=== PATIENT | male | born 1985 | race Caucasian/White ===

== ENCOUNTER 2023-09-27 08:04 | Emergency (ER) | payer OTHER ==
[2023-09-27 08:55] LABS: Bacteria/HPF None Seen HPF (None Seen); Bilirubin Negative (Negative); Blood, Urine Negative (Negative); CAUTI Indications for Culture Pelvic or flank pain; Clarity Clear (Clear); Glucose, Urine (Dipstick) Normal (Negative); Ketone, Urine Negative (Negative); Leukocyte Negative Leu/uL (Negative); Nitrite Negative (Negative); Protein, Urine (Dipstick) Negative (Neg-Trace); RBC/HPF None Seen HPF (0-3); Specific Gravity, Urine 1.004 (1.002-1.036); Squamous Epithelial 0-3 HPF (0-3); Urobilinogen Normal mg/dL (Less than 2); WBC/HPF None Seen HPF (0-3); pH, Urine 5.5 (5.0-9.0)
[2023-09-27 09:00] LABS: Urine Culture Reflex No No
[2023-09-27 09:37] LABS: #Basophils 0.03 10x3/uL (0.0-0.2); %Basophils 0.7 % (0.0-1.0); %Eosinophils 2.6 % (0.0-10.0); %Lymphocytes 39.6 % (21.0-51.0); %Monocytes 9.6 % (0.0-10.0); %Neutrophils 47.3 % (42.0-75.0); Hematocrit 45.2 % (42.0-52.0); Hemoglobin 15.4 g/dL (14.0-18.0); Mean Corpuscular HGB CONC 34.1 g/dL (32.0-36.0); Mean Corpuscular Hemoglobin 30.9 pg (27.0-31.0); Mean Corpuscular Volume 90.8 fL (78.0-98.0); Mean Platelet Volume 9.5 fL (7.4-10.4); Platelet Count 221 10x3/uL (130-400); RBC Distribution Width 12.3 % (11.5-14.5); Red Blood Cell (RBC) Count 4.98 mill/uL (4.70-6.10)
[2023-09-27 09:55] LABS: Amphetamine Not Detected (NotDetected); Barbiturates Screen Not Detected (NotDetected); Benzodiazepine Screen Detected (NotDetected); Cocaine Metabolite Screen Not Detected (NotDetected); Methadone Not Detected (NotDetected); Methamphetamine Not Detected (NotDetected); Opiate Screen Not Detected (NotDetected); Oxycodone Screen Not Detected (NotDetected); Phencyclidine (PCP) Not Detected (NotDetected); THC/Cannabinoid Screen Not Detected (NotDetected); Tricyclic Screen Not Detected (NotDetected)
[2023-09-27 10:01] LABS: ALT (SGPT) 9 U/L (8-55); AST (SGOT) 14 U/L (5-34); Albumin 4.1 g/dL (3.5-5.0); Alkaline Phosphatase 78 U/L (40-110); Anion Gap 13 mmol/L (10-20); BUN (Urea Nitrogen) 10 mg/dL (8.9-20.6); Bilirubin, Total 0.5 mg/dL (0.2-1.2); CK (CPK) 60 U/L (30-200); Calc. Creatinine Clearance 0 mL/min (70-130); Calcium 9.6 mg/dL (7.8-10.44); Carbon Dioxide 26 mmol/L (22-29); Chloride 107 mmol/L (98-107); Estimated GFR 95; Globulin 2.9 g/dL (2.4-3.5); Glucose 96 mg/dL (70-105); Lipase 30 U/L (8-78); Potassium 4.3 mmol/L (3.5-5.1); Sodium 142 mmol/L (136-145)
[2023-09-27 10:07] LABS: Acetaminophen Less than 10 mcg/mL (10.0-30.0); Alcohol Less than 10.0 mg/dL (Less than 10); Salicylate Less than 8.0 mg/dL (15.0-30.0)
[2023-09-27 10:10] LABS: SARS-CoV-2 E Target Negative; SARS-CoV-2 N2 Target Negative; SARS-CoV-2 NAA Rapid Test Not Detected (NotDetected); SARS-CoV-2 RdRP gene Negative
[2023-09-27 11:14] LABS: Troponin I Less than 0.010 ng/mL (< 0.028)
[2023-09-27] MEDS ORDERED: Naproxen 500 MG TAB ONE (12:01)
== END 2023-09-27 12:07 | disposition home or self-care (01) ==
LOC: ERS 08:04
DX: R10.9 Unspecified abdominal pain (principal); G47.9 Sleep disorder, unspecified; R53.83 Other fatigue; R29.700 NIHSS score 0; F17.290 Nicotine dependence, other tobacco product, uncomplicated; B20 Human immunodeficiency virus [HIV] disease; Z79.899 Other long term (current) drug therapy
CPT/HCPCS: 36415; 36416; 74176; 80053; 80306; 80307; 81001; 82550; 83605; 83690; 84484; 85025; 87040; 93005; U0002

== ENCOUNTER 2024-01-24 01:52 | Inpatient (IN) | payer OTHER ==
[2024-01-24] MEDS ORDERED: NOREPINEPHRINE 8 MG/250 ML-D5W 250 ML ONE (01:55)
[2024-01-24 02:35] LABS: Actual Bicarbonate (HCO3a) 16.3 mEq/L (22-28); Analyzer IN Cardio ER; Base Excess (BEa) -11.6 mEq/L (-2.0 to +3.0); CO2 Tension 44.1 mmHg (35.0-45.0); Calcium, Ionized (arterial) 1.06 mmol/L (1.12-1.30); Carboxyhemoglobin (COHb) 0.5 gm% (0.0-3.0); Hematocrit-ABG 44 % (42.0-52.0); Hemoglobin (Hb) 14.8 g/dL (14.0-18.0); O2 Tension (PaO2), arterial 72.6 mmHg (80.0-100.0)
[2024-01-24] MEDS ORDERED: Sodium Bicarb 50 MEQ/50 ML Abboject 8.4% SYRINGE ONE (02:37)
[2024-01-24] MEDS ORDERED: Calcium Chloride 1 GM/10 ML Abboject SYRINGE ONE (02:37)
[2024-01-24 02:41] LABS: #Basophils Less than 0.03 10x3/uL (0.0-0.2); #Eosinophils Less than 0.03 10x3/uL (0.0-0.7); %Basophils 0.2 % (0.0-1.0); %Lymphocytes 8.3 % (21.0-51.0); %Monocytes 6.3 % (0.0-10.0); %Neutrophils 84.5 % (42.0-75.0); Hematocrit 44.4 % (42.0-52.0); Hemoglobin 14.3 g/dL (14.0-18.0); Mean Corpuscular HGB CONC 32.2 g/dL (32.0-36.0); Mean Corpuscular Hemoglobin 30.2 pg (27.0-31.0); Mean Corpuscular Volume 93.7 fL (78.0-98.0); Mean Platelet Volume 9.3 fL (7.4-10.4); Platelet Count 171 10x3/uL (130-400); RBC Distribution Width 13.4 % (11.5-14.5); Red Blood Cell (RBC) Count 4.74 mill/uL (4.70-6.10)
[2024-01-24 02:43] LABS: Acetaminophen Less than 10 mcg/mL (Less than 10); Alcohol Less than 10.0 mg/dL (Less than 10); Salicylate Less than 8.0 mg/dL (Less than 8.0)
[2024-01-24 02:48] LABS: Troponin I 0.148 ng/mL (< 0.028)
[2024-01-24 02:49] LABS: ALT (SGPT) 677 U/L (8-55); AST (SGOT) 769 U/L (5-34); Albumin 3.6 g/dL (3.5-5.0); Alkaline Phosphatase 115 U/L (40-110); Anion Gap 25 mmol/L (10-20); BUN (Urea Nitrogen) 25 mg/dL (8.9-20.6); Bilirubin, Total 0.5 mg/dL (0.2-1.2); Calc. Creatinine Clearance 0 mL/min (70-130); Carbon Dioxide 16 mmol/L (22-29); Chloride 99 mmol/L (98-107); Estimated GFR 31; Globulin 2.8 g/dL (2.4-3.5); Glucose 135 mg/dL (70-105); Potassium 7.2 mmol/L (3.5-5.1); Protein, Total 6.4 g/dL (6.0-8.3); Sodium 133 mmol/L (136-145)
[2024-01-24 02:49] LABS: Bilirubin Negative (Negative); Blood, Urine 3+ (Negative); CAUTI Indications for Culture Alt mental st,lethar; Clarity Turbid (Clear); Glucose, Urine (Dipstick) Normal (Negative); Ketone, Urine Trace mg/dL (Negative); Leukocyte Negative Leu/uL (Negative); Nitrite Negative (Negative); Protein, Urine (Dipstick) 50 mg/dL (Neg-Trace); RBC/HPF 0-3 HPF (0-3); Specific Gravity, Urine 1.015 (1.002-1.036); Squamous Epithelial 0-3 HPF (0-3); Urobilinogen Normal mg/dL (Less than 2); WBC/HPF 0-3 HPF (0-3)
[2024-01-24 02:54] LABS: CK (CPK) 5592 U/L (30-200)
[2024-01-24] MEDS ORDERED: Insulin Regular, Human 100 UNIT/ML 10 ML VIAL ONE (02:54)
[2024-01-24] MEDS ORDERED: Dextrose 10% in Water 250 ML ONE (02:54)
[2024-01-24 02:56] LABS: Amphetamine Detected (NotDetected); Barbiturates Screen Not Detected (NotDetected); Benzodiazepine Screen Detected (NotDetected); Cocaine Metabolite Screen Not Detected (NotDetected); Methadone Not Detected (NotDetected); Methamphetamine Detected (NotDetected); Opiate Screen Not Detected (NotDetected); Oxycodone Screen Not Detected (NotDetected); Phencyclidine (PCP) Not Detected (NotDetected); THC/Cannabinoid Screen Not Detected (NotDetected); Tricyclic Screen Not Detected (NotDetected)
[2024-01-24 02:57] LABS: ALV-art Gradient 585.275 mmHg (0-20); Bacteria/HPF 1+ HPF (None Seen); Potassium - ABG Lab 6.31 mmol/L (3.70-5.30); Puncture Site Left Radial artery; Urine Culture Reflex No No; pH, Arterial 7.186 (7.35-7.45)
[2024-01-24] MEDS ORDERED: fentaNYL 50 mcg/mL 1 mL Vial ONE (03:04)
[2024-01-24] MEDS ORDERED: Albuterol 2.5 MG (0.5 mL) NEB ONE (03:13)
[2024-01-24] MEDS ORDERED: Ondansetron PF 4 MG/2 ML Vial IVP PRN (03:32)
[2024-01-24] MEDS ORDERED: NOREPINEPHRINE 8 MG/250 ML-D5W 250 ML IVPB PRN (03:32)
[2024-01-24] MEDS ORDERED: Acetaminophen 650 MG Suppository PR PRN (03:32)
[2024-01-24] MEDS ORDERED: Acetaminophen 325 MG (10.15 ML) UDCUP PO PRN (03:32)
[2024-01-24] MEDS ORDERED: DISCONTINUE PREVIOUS NARCOTIC PAIN MEDICATIONS AND BENZODIAZEPINES FS SCH (03:45)
[2024-01-24] MEDS ORDERED: Fentanyl BOLUS 250 ML IVPB PRN (03:45)
[2024-01-24] MEDS ORDERED: Propofol BOLUS 1,000 MG/100 ML VIAL IV PRN (03:45)
[2024-01-24] MEDS ORDERED: Morphine 2 MG/ML VIAL SLOW IVP PRN (03:45)
[2024-01-24] MEDS ORDERED: Ventilator Sedation Protocol 1 EACH FS SCH (03:45)
[2024-01-24] MEDS ORDERED: Propofol 1,000 MG/100 ML VIAL IV ONE (03:49)
[2024-01-24] MEDS ORDERED: Dextrose 5% in Water 1,000 ML IV PRN (04:17)
[2024-01-24] MEDS ORDERED: Glucagon 1 MG/ML KIT IM PRN (04:17)
[2024-01-24 05:07] LABS: INR-International Normal Ratio 1.3; PTT 28.7 sec (22.9-36.1); Prothrombin Time 16.3 sec (12.0-14.7)
[2024-01-24 05:15] LABS: Actual Bicarbonate (HCO3a) 17.7 mEq/L (22-28); Base Excess (BEa) -8.8 mEq/L (-2.0 to +3.0); CO2 Tension 40.2 mmHg (35.0-45.0); Calcium, Ionized (arterial) 1.14 mmol/L (1.12-1.30); Carboxyhemoglobin (COHb) 0.4 gm% (0.0-3.0); Hematocrit-ABG 41 % (42.0-52.0); Hemoglobin (Hb) 13.9 g/dL (14.0-18.0); O2 Tension (PaO2), arterial 168.4 mmHg (80.0-100.0); Potassium - ABG Lab 5.38 mmol/L (3.70-5.30); pH, Arterial 7.261 (7.35-7.45)
[2024-01-24 05:19] LABS: Puncture Site Right Brachial art
[2024-01-24 05:56] LABS: Troponin I 0.145 ng/mL (< 0.028)
[2024-01-24] MEDS: Dextrose 50% Abboject 50 ML SYRINGE SLOW IVP SCH ×2 (06:03→08:36)
[2024-01-24 06:06] VITALS: BMI 21.8
[2024-01-24] MEDS: Acetaminophen 325 MG TAB PO SCH (07:05)
[2024-01-24 07:08] LABS: #Basophils Less than 0.03 10x3/uL (0.0-0.2); #Eosinophils Less than 0.03 10x3/uL (0.0-0.7); %Basophils 0.2 % (0.0-1.0); %Lymphocytes 18.8 % (21.0-51.0); %Monocytes 5.3 % (0.0-10.0); %Neutrophils 75.3 % (42.0-75.0); Hematocrit 41.8 % (42.0-52.0); Hemoglobin 14.1 g/dL (14.0-18.0); Mean Corpuscular HGB CONC 33.7 g/dL (32.0-36.0); Mean Corpuscular Hemoglobin 30.7 pg (27.0-31.0); Mean Corpuscular Volume 91.1 fL (78.0-98.0); Platelet Count 223 10x3/uL (130-400); RBC Distribution Width 13.3 % (11.5-14.5); Red Blood Cell (RBC) Count 4.59 mill/uL (4.70-6.10)
[2024-01-24] MEDS: Sodium Bicarbonate 150 MEQ in Dextrose 5% in Water 1,000 ML IV SCH (07:25)
[2024-01-24] MEDS: Cefepime 1 GM in Sodium Chloride 0.9% 100 ML IVPB SCH (07:25)
[2024-01-24 07:37] LABS: Anion Gap 16 mmol/L (10-20); BUN (Urea Nitrogen) 26 mg/dL (8.9-20.6); Calc. Creatinine Clearance 46 mL/min (70-130); Calcium 8.2 mg/dL (7.8-10.44); Carbon Dioxide 22 mmol/L (22-29); Chloride 103 mmol/L (98-107); Estimated GFR 38; Glucose 195 mg/dL (70-105); Potassium 7.2 mmol/L (3.5-5.1); Sodium 134 mmol/L (136-145)
[2024-01-24 07:37] LABS: Lactic Acid 7.25 mmol/L (0.5-2.2)
[2024-01-24 08:16] LABS: Potassium 7.1 mmol/L (3.5-5.1)
[2024-01-24] MEDS: Pantoprazole 40 MG VIAL IVP SCH (08:28)
[2024-01-24] MEDS: Heparin 5,000 UNITS/ML VIAL SC SCH (08:31)
[2024-01-24 08:35] LABS: Calcium, Ionized (venous) 1.04 mmol/L (1.16-1.32); Chloride (VBG) 99 mmol/L (98-106); Hematocrit-VBG 43 % (42.0-52.0); Hemoglobin (Hb) 14.7 g/dL (13.2-17.3); pH (venous) 7.277 (7.32-7.43)
[2024-01-24] MEDS: Lactulose 20 GM (30 mL) UDCUP PER TUBE SCH (08:35)
[2024-01-24] MEDS: Sodium Bicarb 50 MEQ/50 ML Abboject 8.4% SYRINGE IVP SCH (08:35)
[2024-01-24] MEDS: Albumin 25% 25 GM (100 mL) BOT IVPB SCH ×2 (08:35→11:33)
[2024-01-24] MEDS ORDERED: Famotidine 20 MG TAB PO SCH (09:00)
[2024-01-24 09:12] LABS: Lactic Acid 5.41 mmol/L (0.5-2.2)
[2024-01-24 09:30] LABS: ALT (SGPT) 1173 U/L (8-55); AST (SGOT) 1327 U/L (5-34); Alkaline Phosphatase 86 U/L (40-110); Anion Gap 17 mmol/L (10-20); BUN (Urea Nitrogen) 25 mg/dL (8.9-20.6); Bilirubin, Total 0.5 mg/dL (0.2-1.2); Calc. Creatinine Clearance 50 mL/min (70-130); Calcium 7.9 mg/dL (7.8-10.44); Carbon Dioxide 22 mmol/L (22-29); Chloride 102 mmol/L (98-107); Estimated GFR 42; Globulin 2.3 g/dL (2.4-3.5); Glucose 188 mg/dL (70-105); Potassium 6.8 mmol/L (3.5-5.1); Protein, Total 5.3 g/dL (6.0-8.3); Sodium 134 mmol/L (136-145)
[2024-01-24] MEDS: Calcium Gluc 4.6 MEQ/10 ML (100 MG/ML) SLOW IVP SCH (09:33)
[2024-01-24] MEDS: Sodium Polystyrene Sulfonate 15 GM (60 mL) BOT PER TUBE SCH (09:34)
[2024-01-24] MEDS: Insulin Regular, Human 100 UNIT/ML 10 ML VIAL SC SCH (09:45)
[2024-01-24] MEDS ORDERED: Iopamidol-370 76% 500 ML MDV (1 ML CHARGE) ONE (09:53)
[2024-01-24 10:00] LABS: CK (CPK) 5920 U/L (30-200)
[2024-01-24] MEDS: Lorazepam 2 MG/ML VIAL SLOW IVP PRN (10:07)
[2024-01-24] MEDS: Dexmedetomidine In 0.9 % NaCl 100 ML IVPB SCH (11:32)
[2024-01-24] MEDS: Propofol 1,000 MG/100 ML VIAL IV PRN (11:33)
[2024-01-24] MEDS ORDERED: Acetaminophen 325 MG (10.15 ML) UDCUP PER TUBE SCH (11:45)
[2024-01-24] MEDS: Acetaminophen 325 MG (10.15 ML) UDCUP PER TUBE SCH (11:46)
[2024-01-24] MEDS: Nitroglycerin 50 MG/250 ML BOT 250 ML ONE (12:52)
[2024-01-24 14:22] LABS: Troponin I 0.138 ng/mL (< 0.028)
[2024-01-24] MEDS: Acetaminophen 650 MG Suppository PR PRN (15:34)
[2024-01-24] MEDS: Fentanyl CADD 100 ML IV SCH (16:24)
[2024-01-24 20:49] LABS: Anion Gap 9 mmol/L (10-20); BUN (Urea Nitrogen) 17 mg/dL (8.9-20.6); Calc. Creatinine Clearance 100 mL/min (70-130); Calcium 8.1 mg/dL (7.8-10.44); Carbon Dioxide 34 mmol/L (22-29); Chloride 102 mmol/L (98-107); Estimated GFR 95; Glucose 123 mg/dL (70-105); Potassium 3.3 mmol/L (3.5-5.1); Sodium 142 mmol/L (136-145)
[2024-01-24] MEDS: Lactated Ringer's 1,000 ML IV SCH (21:06)
[2024-01-25] MEDS: Acetaminophen 650 MG/20.3 ML UDCUP PER TUBE PRN (04:16)
[2024-01-25 05:24] LABS: Hematocrit 34.2 % (42.0-52.0); Hemoglobin 11.6 g/dL (14.0-18.0); Mean Corpuscular HGB CONC 33.9 g/dL (32.0-36.0); Mean Corpuscular Hemoglobin 30.8 pg (27.0-31.0); Mean Corpuscular Volume 90.7 fL (78.0-98.0); Mean Platelet Volume 9.6 fL (7.4-10.4); Platelet Count 155 10x3/uL (130-400); RBC Distribution Width 13.6 % (11.5-14.5); Red Blood Cell (RBC) Count 3.77 mill/uL (4.70-6.10)
[2024-01-25 05:50] LABS: ALT (SGPT) 710 U/L (8-55); AST (SGOT) 724 U/L (5-34); Albumin 3.6 g/dL (3.5-5.0); Alkaline Phosphatase 63 U/L (40-110); BUN (Urea Nitrogen) 13 mg/dL (8.9-20.6); Bilirubin, Total 0.8 mg/dL (0.2-1.2); Calc. Creatinine Clearance 130 mL/min (70-130); Calcium 8.2 mg/dL (7.8-10.44); Carbon Dioxide 33 mmol/L (22-29); Estimated GFR 116; Globulin 1.6 g/dL (2.4-3.5); Glucose 95 mg/dL (70-105); Protein, Total 5.2 g/dL (6.0-8.3)
[2024-01-25 06:01] LABS: Band 21 % (5-11); CK (CPK) 5130 U/L (30-200); Lymphocytes 22 % (21-51); Metamyelocyte 4 % (0-0); Monocytes 1 % (0-10); Neutrophil 52 % (42-75); Platelet Adequacy Comment Platelets Normal; RBC Morphology Within Normal Limits; Toxic Granulation SLIGHT; Vacuoles SLIGHT
[2024-01-25 06:05] LABS: Chloride 103 mmol/L (98-107); Potassium 3.6 mmol/L (3.5-5.1); Sodium 140 mmol/L (136-145)
[2024-01-25 06:08] LABS: Anion Gap 10 mmol/L (10-20)
[2024-01-25] MEDS: ALPRAZolam 0.5 MG TAB PO SCH (13:04)
[2024-01-25 14:40] VITALS: BMI 22.1
[2024-01-25] MEDS: Cefepime 2 GM in Sodium Chloride 0.9% 100 ML IVPB SCH (15:03)
[2024-01-25] MEDS: Acetaminophen 325 MG TAB PO PRN (15:04)
[2024-01-25] MEDS: ALPRAZolam 1 MG TAB PO SCH (17:19)
[2024-01-25] MEDS: hydrOXYzine 25 MG TAB PO SCH (20:00)
[2024-01-25] MEDS: Propranolol 10 MG TAB PO SCH (20:00)
[2024-01-25] MEDS: Bictegrav/Emtricit/Tenofov Ala 1 TAB PO SCH (20:01)
[2024-01-26 04:47] LABS: #Basophils Less than 0.03 10x3/uL (0.0-0.2); %Basophils 0.2 % (0.0-1.0); %Eosinophils 1.5 % (0.0-10.0); %Monocytes 6.5 % (0.0-10.0); %Neutrophils 69.1 % (42.0-75.0); Hematocrit 30.6 % (42.0-52.0); Hemoglobin 10.4 g/dL (14.0-18.0); Mean Corpuscular Hemoglobin 30.9 pg (27.0-31.0); Mean Corpuscular Volume 90.8 fL (78.0-98.0); Mean Platelet Volume 9.4 fL (7.4-10.4); Platelet Count 146 10x3/uL (130-400); RBC Distribution Width 13.3 % (11.5-14.5); Red Blood Cell (RBC) Count 3.37 mill/uL (4.70-6.10)
[2024-01-26 04:56] LABS: ALT (SGPT) 525 U/L (8-55); AST (SGOT) 325 U/L (5-34); Albumin 3.3 g/dL (3.5-5.0); Alkaline Phosphatase 63 U/L (40-110); Anion Gap 10 mmol/L (10-20); BUN (Urea Nitrogen) 9 mg/dL (8.9-20.6); Bilirubin, Total 1.3 mg/dL (0.2-1.2); CK (CPK) 2720 U/L (30-200); Calc. Creatinine Clearance 130 mL/min (70-130); Calcium 8.7 mg/dL (7.8-10.44); Carbon Dioxide 27 mmol/L (22-29); Chloride 107 mmol/L (98-107); Estimated GFR 116; Globulin 2.1 g/dL (2.4-3.5); Glucose 89 mg/dL (70-105); Potassium 3.5 mmol/L (3.5-5.1); Protein, Total 5.4 g/dL (6.0-8.3); Sodium 140 mmol/L (136-145)
[2024-01-26] MEDS: Sodium Chloride 0.45% 1,000 ML IV SCH (07:56)
[2024-01-26] MEDS: Pantoprazole DR 40 MG TAB PO SCH (08:43)
[2024-01-26] MEDS: Enoxaparin 40 MG (0.4 mL) SYRINGE SC SCH (08:43)
[2024-01-26] MEDS: Lorazepam 0.5 MG TAB PO SCH (08:44)
[2024-01-26] MEDS: ALPRAZolam 1 MG TAB PO SCH (10:31)
[2024-01-26 10:39] LABS: Potassium (VBG) 6.56 mmol/L (3.70-5.30)
[2024-01-26 12:41] LABS: HIV-1 Quantitative, RNA PCR <20 copies/mL (.)
[2024-01-26] MEDS: DC Sedation Protocol FS ONE (20:12)
[2024-01-26] MEDS: QUEtiapine 100 MG TAB PO SCH (20:52)
[2024-01-27 06:21] LABS: #Basophils Less than 0.03 10x3/uL (0.0-0.2); %Basophils 0.2 % (0.0-1.0); %Eosinophils 1.8 % (0.0-10.0); %Lymphocytes 22.4 % (21.0-51.0); %Neutrophils 65.1 % (42.0-75.0); Hemoglobin 10.4 g/dL (14.0-18.0); Mean Corpuscular HGB CONC 34.7 g/dL (32.0-36.0); Mean Corpuscular Hemoglobin 30.7 pg (27.0-31.0); Mean Corpuscular Volume 88.5 fL (78.0-98.0); Mean Platelet Volume 9.5 fL (7.4-10.4); Platelet Count 178 10x3/uL (130-400); RBC Distribution Width 13.1 % (11.5-14.5); Red Blood Cell (RBC) Count 3.39 mill/uL (4.70-6.10)
[2024-01-27 06:39] LABS: ALT (SGPT) 389 U/L (8-55); AST (SGOT) 157 U/L (5-34); Albumin 3.3 g/dL (3.5-5.0); Alkaline Phosphatase 83 U/L (40-110); Anion Gap 9 mmol/L (10-20); BUN (Urea Nitrogen) 10 mg/dL (8.9-20.6); Bilirubin, Total 1.1 mg/dL (0.2-1.2); Calc. Creatinine Clearance 129 mL/min (70-130); Calcium 8.7 mg/dL (7.8-10.44); Carbon Dioxide 23 mmol/L (22-29); Chloride 113 mmol/L (98-107); Estimated GFR 115; Globulin 2.4 g/dL (2.4-3.5); Glucose 105 mg/dL (70-105); Potassium 3.1 mmol/L (3.5-5.1); Protein, Total 5.7 g/dL (6.0-8.3); Sodium 142 mmol/L (136-145)
[2024-01-27] MEDS ORDERED: FLU (Fluarix Triv) TS24-25(6MOS UP)/PF 45 MCG/0.5 ML Syringe IM ONE (09:00)
[2024-01-27] MEDS: Potassium Chloride 20 MEQ TAB PO SCH (10:01)
[2024-01-27] MEDS: Lactated Ringer's 1,000 ML IV SCH (10:03)
[2024-01-28 05:02] LABS: #Basophils Less than 0.03 10x3/uL (0.0-0.2); %Basophils 0.4 % (0.0-1.0); %Eosinophils 4.9 % (0.0-10.0); %Lymphocytes 39.8 % (21.0-51.0); %Monocytes 14.2 % (0.0-10.0); %Neutrophils 40.1 % (42.0-75.0); Mean Corpuscular HGB CONC 35.5 g/dL (32.0-36.0); Mean Corpuscular Hemoglobin 30.3 pg (27.0-31.0); Mean Corpuscular Volume 85.4 fL (78.0-98.0); Mean Platelet Volume 9.5 fL (7.4-10.4); Platelet Count 189 10x3/uL (130-400); Red Blood Cell (RBC) Count 3.63 mill/uL (4.70-6.10)
[2024-01-28 05:19] LABS: ALT (SGPT) 296 U/L (8-55); AST (SGOT) 107 U/L (5-34); Albumin 3.1 g/dL (3.5-5.0); Alkaline Phosphatase 86 U/L (40-110); Anion Gap 10 mmol/L (10-20); BUN (Urea Nitrogen) 9 mg/dL (8.9-20.6); Bilirubin, Total 0.6 mg/dL (0.2-1.2); CK (CPK) 713 U/L (30-200); Calc. Creatinine Clearance 133 mL/min (70-130); Calcium 8.3 mg/dL (7.8-10.44); Carbon Dioxide 20 mmol/L (22-29); Chloride 113 mmol/L (98-107); Estimated GFR 116; Globulin 2.6 g/dL (2.4-3.5); Glucose 99 mg/dL (70-105); Magnesium 1.9 mg/dL (1.6-2.6); Potassium 3.3 mmol/L (3.5-5.1); Protein, Total 5.7 g/dL (6.0-8.3); Sodium 140 mmol/L (136-145)
[2024-01-28] MEDS: Potassium Chloride 20 MEQ TAB PO SCH (10:41)
[2024-01-28] MEDS: Nicotine 21 MG PATCH TD SCH (10:41)
[2024-01-28] MEDS: FLU (Fluarix Triv) TS24-25(6MOS UP)/PF 45 MCG/0.5 ML Syringe ONE (15:04)
[2024-01-28 15:13] VITALS: BP 141/84; TEMP 98.3
== END 2024-01-28 15:34 | disposition home or self-care (01) | DRG 917 ==
LOC: ERS 01:52 → CCU 04:56 → T4-A 01-26 11:53
PROVIDERS: ADMIT Student in an Organized Health Care Education/Training Program; ATTEND Internal Medicine
PROC: 0T9B70Z Drainage of Bladder with Drainage Device, Via Natural or Artificial Opening (ICD-10-PCS; principal; 2024-01-24)
PROC: 06HY33Z Insertion of Infusion Device into Lower Vein, Percutaneous Approach (ICD-10-PCS; 2024-01-24)
PROC: 0DH67UZ Insertion of Feeding Device into Stomach, Via Natural or Artificial Opening (ICD-10-PCS; 2024-01-24)
PROC: 4A00X4Z Measurement of Central Nervous Electrical Activity, External Approach (ICD-10-PCS; 2024-01-25)
DX: T40.2X1A Poisoning by other opioids, accidental (unintentional), initial encounter (principal); G93.41 Metabolic encephalopathy; I21.4 Non-ST elevation (NSTEMI) myocardial infarction; J96.01 Acute respiratory failure with hypoxia; E87.20 Acidosis, unspecified; N17.9 Acute kidney failure, unspecified; M62.82 Rhabdomyolysis; T42.4X1A Poisoning by benzodiazepines, accidental (unintentional), initial encounter; E87.5 Hyperkalemia; Z21 Asymptomatic human immunodeficiency virus [HIV] infection status; Z88.2 Allergy status to sulfonamides; F41.0 Panic disorder [episodic paroxysmal anxiety]; Z79.899 Other long term (current) drug therapy; F41.9 Anxiety disorder, unspecified; F32.A Depression, unspecified; F17.290 Nicotine dependence, other tobacco product, uncomplicated; Z98.890 Other specified postprocedural states; F43.10 Post-traumatic stress disorder, unspecified
CPT/HCPCS: 36415; 36416; 36556; 36600; 51702; 70450; 70551; 71045; 71260; 74177; 80053; 80306; 80307; 81001; 82140; 82550; 82805; 83605; 83735; 84443; 84484; 85025; 85610; 85730; 87040; 87536; 90656; 93005; 93306; 94002; 94003; 94760; 95705; 96365; 96366; 96368; 96375; J0612; J0692; J1644; J1650; J1815; J2060; J2470; J2704; J3010; J7070; J7120; J7611; J7999; P9047; Q9967